=== PATIENT | female | born 1990 | race Hispanic/Latino ===

== ENCOUNTER 2019-07-03 02:40 | Emergency (ER) | payer OTHER, SELFPAY ==
[2019-07-03 02:48] VITALS: BP 144/86; PULSE 80; RESP 18; TEMP 37; O2SAT 98
--- NOTE | 2019-07-03 02:50 | ED.WOUNDLAC ---
HPI - Wound/Laceration General Chief Complaint: Wound/Laceration Stated Complaint: laceration to middle finger left hand Time Seen by Provider: 07/03/19 02:43 Source: patient Mode of arrival: Ambulatory Limitations: no limitations History of Present Illness HPI narrative: 28-year-old female here for evaluation for a cut to her left middle finger. She did cut on a knife just prior to arrival. Her tetanus is updated. She covered with a bandage prior to arrival. Related Data Allergies Allergy/AdvReac Type Severity Reaction Status Date / Time acetaminophen [From Vicodin] Allergy Mild Verified 07/03/19 03:00 hydrocodone [From Vicodin] Allergy Mild Verified 07/03/19 03:00 bee pollen Allergy Verified 07/03/19 03:01 Review of Systems Musculoskeletal Musculoskeletal: Denies myalgias and Denies arthralgias Integumentary/Breasts Comments: Cut to left middle finger Neurologic Neurologic: Denies paresthesias Hematologic/Lymphatic Hematologic/Lymphatic: Denies easy bleeding and Denies easy bruising Patient History Medical History Healthy adult (Acute) Social History Smoking Status: Never smoker Smoking Status: Never smoker alcohol intake frequency: a few times a month Substance Use Type: does not use Exam Initial Vital Signs Initial Vital Signs: Vital Signs Temperature 98.6 F 07/03/19 02:48 Pulse Rate 80 07/03/19 02:48 Respiratory Rate 18 07/03/19 02:48 Blood Pressure 144/86 H 07/03/19 02:48 Pulse Oximetry 98 07/03/19 02:48 Skin Other: 2 cm cut radial aspect of left middle finger distal to the D IP joint. Does not involve the nail bed. Neuro Sensory Exam: no sensory deficits noted Extrem Other: Full range of motion the D IP joint left middle finger Procedures Laceration Repair Laceration 1: Site: hand Side (If applicable): left Size (cm): 2 Description: flap Depth: simple, single layer Local Anesthetic: lidocaine 1% Amount of anesthesia used (mL): 3 Pre-repair: wound explored, irrigated extensively and deep structures intact Skin layer closed with: nylon Size (cm): 4-0 Number of sutures: 5 Technique: simple, interrupted Course Orders Ordered: Discontinued Medications Bacitracin (Bacitracin) 1 applic TOP NOW ONE Stop: 07/03/19 03:12 Lidocaine HCl (Xylocaine 1% (Pf)) 4 ml INJ NOW ONE Stop: 07/03/19 02:55 Last Admin: 07/03/19 03:01 Dose: 4 ml Documented by: VERENICE Vital Signs Vital signs: Vital Signs - 8 hr 07/03/19 02:48 Temperature 98.6 F Pulse Rate 80 Respiratory Rate 18 Blood Pressure 144/86 H Pulse Oximetry 98 MDM - Wound/Laceration MDM Narrative Medical decision making narrative: Laceration closed as described above. This was more of a flap cut rather than a linear cut. Informed the patient that there's a potential that the flap does not survive. He stated this could depend on the blood supply to this area. It does not involve the nail bed. She was informed that there would be a scar. We discussed return precautions and follow-up instructions. She expressed understanding agreement with plan. Discharge Plan Departure Patient Disposition: Home Clinical Impression: Laceration Instructions: DI for Minor Laceration Activity Restrictions/Additional Instructions: Recommend that you keep the bandage on for the next 24 hours. After that you can take it off. You can then wash your hands like normal with soap and water however do not soak your hand in anything for the next 7 days. After you wash your hands you can cover the stitches back up with a Band-Aid. The stitches do need to be removed in 7 days. Return to the emergency department for any new or worsening symptoms
[2019-07-03] MEDS: LIDOCAINE 1% (PF) 4 ML INJ (03:01)
== END 2019-07-03 03:30 | disposition home or self-care (01) ==
PROVIDERS: Emergency Provider Emergency Medicine
DX: S61.213A Laceration without foreign body of left middle finger without damage to nail, initial encounter (principal); W26.0XXA Contact with knife, initial encounter
CPT/HCPCS: 12001; 99281; 99283

== ENCOUNTER 2019-08-03 19:08 | Emergency (ER) | payer OTHER, SELFPAY ==
[2019-08-03 19:15] VITALS: BP 134/79; PULSE 77; RESP 18; O2SAT 98
[2019-08-03 20:29] LABS: Add Manual Diff / Slide Review NO; Basophils Absolute Auto 100 /uL (0-100); Basophils Percent Auto 1.1 % (0-2); Eosinophils Absolute Auto 400 /uL (0-450); Eosinophils Percent Auto 4.1 % (2-4); Hematocrit 38.4 % (36-46); Hemoglobin 13.3 g/dL (12.0-16.0); Lymphocytes Absolute Auto 2900 /uL (1100-4500); Lymphocytes Percent Auto 32.5 % (25-40); Mean Corpuscular HGB Conc 34.6 % (30-36); Mean Corpuscular Hemoglobin 30.1 PG (26-34); Mean Corpuscular Volume 87.1 fL (80-100); Monocytes Absolute Auto 500 /uL (0-900); Monocytes Percent Auto 6.1 % (3-14); Neutrophils Absolute Auto 5000 /uL (1500-7000); Neutrophils Percent Auto 56.2 % (50-75); Platelet Count 274 X10^3/uL (150-400); Red Blood Cell Count 4.41 X10^6/uL (4.0-5.2); Red Cell Distribution Width 12.7 % (11.6-14.8)
[2019-08-03 20:35] LABS: INR 0.9 (0.9-1.3); Prothrombin Time 10.2 SECONDS (10.1-12.7)
[2019-08-03 20:37] LABS: PTT Partial Thromboplastin Tim 28 SECONDS (26.4-36.2)
--- NOTE | 2019-08-03 20:38 | ED.GENADULT ---
HPI - General Adult General Chief complaint: Eye Problems Stated complaint: left eye red and irritated, face also Time Seen by Provider: 08/03/19 20:33 Source: patient Mode of arrival: Ambulatory Limitations: no limitations History of Present Illness HPI narrative: 28-year-old woman with no significant medical history presents with significant redness and swelling with some drainage around the left eye extending down to the angle of the jaw with significant adenopathy. She has no significant past medical history. Her problem began approximately 7 days ago with some mild erythema over the upper eyelid. Was initially seen at a walk-in clinic and given some mupirocin ointment. Was seen at an eye clinic earlier today and was told to use some Vaseline and cover the eye with sunglasses and follow-up with specialist next week. She does note that she has not had any fevers or chills. She otherwise feels well. She complains of some blurring from the left eye and it's unclear if it actual visual acuity changes or blurring from discharge or local edema. Related Data Home Medications Medication Instructions Recorded Confirmed cephalexin 500 mg PO TID 08/03/19 08/03/19 Previous Rx's Medication Instructions Recorded amoxicillin-pot clavulanate 1 tab PO BID #28 tab 08/04/19 [Augmentin] Allergies Allergy/AdvReac Type Severity Reaction Status Date / Time hydrocodone [From Vicodin] Allergy Mild Verified 07/03/19 03:00 bee pollen Allergy Verified 07/03/19 03:01 Review of Systems Review of Systems Narrative: Denies ? fever ? cough ? cold ? chills ? chest pain ? dyspnea ? orthopnea ? wheezing ? abdominal pain ? change to bowel or bladder habits ? nausea vomiting ? skin changes ? rashes Patient History Medical History Healthy adult (Acute) Social History Smoking Status: Never smoker Smoking Status: Never smoker alcohol intake frequency: a few times a month Substance Use Type: does not use Exam Narrative Exam Narrative: General: Healthy appearing, in no acute distress. Able to give a complete and coherent history. Well-nourished well-developed HEENT: Left eye with moderate erythema and honey crusting discharge. Eyelids are swollen however she is able to open the eye enough to see. The erythema extends on to the temporal area as well as down over the maxilla on the left. There is no obvious abscess. Moist mucous membranes, normal sclera with reactive pupils. 20/20 visual acuity on the right, 20/40 on the left Neck: No JVD, supple. Positive left-sided anterior cervical adenopathy Respiratory: Lungs are clear to auscultation, no wheezing no rales no rhonchi. Full and symmetrical air movement Cardiac: Regular rate and rhythm no murmurs no bruits Abdomen: Soft nontender good bowel tones, no flank pain Skin: Warm and dry, no rashes Neurologic: Grossly neurologically intact with no obvious asymmetries or abnormalities Extremities: No trauma, well perfused Psych: Cooperative, appropriate insight and affect Initial Vital Signs Initial Vital Signs: Vital Signs Pulse Rate 77 08/03/19 19:15 Respiratory Rate 18 08/03/19 19:15 Blood Pressure 134/79 08/03/19 19:15 Pulse Oximetry 98 08/03/19 19:15 Course Orders Ordered: ED Orders 08/03/19 20:16 Complete Blood Count AUTO DIFF Stat Comprehensive Metabolic Panel Stat Lactate (Lactic Acid) Stat Lipase Stat Partial Thromboplastin Time Stat Procalcitonin Stat Prothrombin Time INR Stat 08/03/19 20:41 CT orbit BI w con Stat 08/03/19 20:44 Blood Culture Stat Discontinued Medications Ceftriaxone Sodium/Dextrose (Rocephin) 2 gm in 50 mls @ 100 mls/hr IV NOW ONE Stop: 08/03/19 21:29 Last Infusion: 08/03/19 22:12 Dose: 0 mls/hr Documented by: Admin: 08/03/19 21:01 Dose: 100 mls/hr Documented by: PATRICK Vital Signs Vital signs: Vital Signs - 8 hr 08/04/19 00:24 Temperature 98.3 F Pulse Rate 84 Respiratory Rate 18 Blood Pressure 124/80 Pulse Oximetry 98 Medical Decision Making Lab Data Lab results reviewed: Yes I reviewed the patient's lab results. Result diagrams: 08/03/19 20:16 08/03/19 20:16 Labs: Lab Results 08/03/19 08/03/19 08/03/19 Range/Units 20:16 20:16 20:16 WBC 9.0 (4.5-11.0) X10^3/uL RBC 4.41 (4.0-5.2) X10^6/uL Hgb 13.3 (12.0-16.0) g/dL Hct 38.4 (36-46) % MCV 87.1 (80-100) fL MCH 30.1 (26-34) PG MCHC 34.6 (30-36) % RDW 12.7 (11.6-14.8) % Plt Count 274 (150-400) X10^3/uL Neut % (Auto) 56.2 (50-75) % Lymph % (Auto) 32.5 (25-40) % [place] % (Auto) 6.1 (3-14) % Eos % (Auto) 4.1 H (2-4) % Baso % (Auto) 1.1 (0-2) % Neut # (Auto) 5000 (0714-3485) /uL Lymph # (Auto) 2900 (5125-4258) /uL [place] # (Auto) 500 (0-900) /uL Eos # (Auto) 400 (0-450) /uL Baso # (Auto) 100 (0-100) /uL PT 10.2 (10.1-12.7) SECONDS INR 0.9 (0.9-1.3) APTT 28 (26.4-36.2) SECONDS Sodium (137-145) mmol/L Potassium (3.4-5.1) mmol/L Chloride (98-107) mmol/L Carbon Dioxide (22-32) mmol/L BUN (7-17) mg/dL Creatinine (0.52-1.04) mg/dL Estimated GFR (>60) mL/min BUN/Creatinine Ratio (6-22) Glucose (70-100) mg/dL Lactate (0.7-2.1) mmol/L Calcium (8.4-10.2) mg/dL Total Bilirubin (0.2-1.3) mg/dL AST (14-36) IU/L ALT (<35) IU/L Alkaline Phosphatase (38-126) U/L Total Protein (6.3-8.2) g/dL Albumin (3.5-5.0) g/dL Globulin (1.7-4.1) g/dL Albumin/Globulin Ratio (1.0-2.8) Lipase (23-300) U/L Procalcitonin < 0.05 (<0.5) ng/mL 08/03/19 08/03/19 Range/Units 20:16 20:16 WBC (4.5-11.0) X10^3/uL RBC (4.0-5.2) X10^6/uL Hgb (12.0-16.0) g/dL Hct (36-46) % MCV (80-100) fL MCH (26-34) PG MCHC (30-36) % RDW (11.6-14.8) % Plt Count (150-400) X10^3/uL Neut % (Auto) (50-75) % Lymph % (Auto) (25-40) % [place] % (Auto) (3-14) % Eos % (Auto) (2-4) % Baso % (Auto) (0-2) % Neut # (Auto) (9473-2452) /uL Lymph # (Auto) (6350-3074) /uL [place] # (Auto) (0-900) /uL Eos # (Auto) (0-450) /uL Baso # (Auto) (0-100) /uL PT (10.1-12.7) SECONDS INR (0.9-1.3) APTT (26.4-36.2) SECONDS Sodium 137 (137-145) mmol/L Potassium 3.6 (3.4-5.1) mmol/L Chloride 103 (98-107) mmol/L Carbon Dioxide 22 (22-32) mmol/L BUN 14 (7-17) mg/dL Creatinine 0.80 (0.52-1.04) mg/dL Estimated GFR > 60.0 (>60) mL/min BUN/Creatinine Ratio 17.5 (6-22) Glucose 108 H (70-100) mg/dL Lactate 1.6 (0.7-2.1) mmol/L Calcium 9.1 (8.4-10.2) mg/dL Total Bilirubin 0.2 (0.2-1.3) mg/dL AST 36 (14-36) IU/L ALT 32 (<35) IU/L Alkaline Phosphatase 52 (38-126) U/L Total Protein 7.2 (6.3-8.2) g/dL Albumin 4.1 (3.5-5.0) g/dL Globulin 3.1 (1.7-4.1) g/dL Albumin/Globulin Ratio 1.3 (1.0-2.8) Lipase 138 (23-300) U/L Procalcitonin (<0.5) ng/mL Point of Care Testing Test Results Negative Urine Dip Bedside Urine Glucose Negative Bedside Urine Bilirubin - Negative Bedside Urine Ketone - Negative Urine Specific [place] 1.020 Bedside Urine Occult Blood - Negative Bedside Urine pH 5.5 Bedside Urine Protein - Negative Bedside Urine Urobilinogen - Negative Bedside Urine Nitrite - Negative Bedside Urine Leukocytes - Negative Esterase Point of care testing: Point of Care Testing Test Results Negative Urine Dip Bedside Urine Glucose Negative Bedside Urine Bilirubin - Negative Bedside Urine Ketone - Negative Urine Specific [place] 1.020 Bedside Urine Occult Blood - Negative Bedside Urine pH 5.5 Bedside Urine Protein - Negative Bedside Urine Urobilinogen - Negative Bedside Urine Nitrite - Negative Bedside Urine Leukocytes - Negative Esterase Imaging Data orbital CT: Attestation: I personally reviewed and interpreted this imaging study as follows: Radiologist's Impression: IMPRESSION: 1. Left periorbital cellulitis appears to remain superficial. 2. No evidence of drainable periorbital fluid collection. 3. Bilateral sinusitis, mild left frontal and sphenoid sinus disease as well as ethmoid mucosal thickening. Dictated by: Crista Matson M.D. on 08/03/2019 at 22:23 MDM Narrative Medical decision making narrative: Worsening periorbital cellulitis with concurrent impetigo. Incidentally noted bacterial sinusitis on CT scan to be done to rule out periorbital abscess. No evidence of sepsis, abscess or immediate visual threatening injury. She was given a 2 g dose of ceftriaxone IV in the emergency department and discharged home with 14 days of Augmentin. She is safe for home discharge Thank you for coming in today. You have a couple of issues going on today. First you have impetigo, which is a superficial skin infection around her eye. Please continue to use the mupirocin bacterial ointment on the red part around her eye You also have periorbital cellulitis, infection in the skin and soft tissues around her eye. Fortunately this does not extend back behind her eyeball or include the eyeball itself. I'm going to have you stop the Keflex that you currently are taking and start Augmentin 875 mg twice a day for 14 days. I do expect that your redness and swelling will be at least as bad as it current weight is for another 24 hours and then begin to improve. If that is not what is happening you may need IV antibiotics for an extended period of time and do need to return to the emergency department It also appears that you have acute bacterial sinusitis based on your CT scan. The Augmentin will help with that as well. We typically treat sinusitis for a bit longer than cellulitis and that is why have recommended a 14 day course. I hope you heal completely. Discharge Plan Departure Patient Disposition: Home Clinical Impression: Acute bacterial sinusitis, Impetigo Cellulitis, periorbital Qualifiers: Laterality: left Qualified Code(s): L03.213 - Periorbital cellulitis Discharge Date/Time: 08/04/19 00:25 Instructions: DI for Sinusitis, DI for Orbital Cellulitis Activity Restrictions/Additional Instructions: Thank you for coming in today. You have a couple of issues going on today. First you have impetigo, which is a superficial skin infection around her eye. Please continue to use the mupirocin bacterial ointment on the red part around her eye You also have periorbital cellulitis, infection in the skin and soft tissues around her eye. Fortunately this does not extend back behind her eyeball or include the eyeball itself. I'm going to have you stop the Keflex that you currently are taking and start Augmentin 875 mg twice a day for 14 days. I do expect that your redness and swelling will be at least as bad as it current weight is for another 24 hours and then begin to improve. If that is not what is happening you may need IV antibiotics for an extended period of time and do need to return to the emergency department It also appears that you have acute bacterial sinusitis based on your CT scan. The Augmentin will help with that as well. We typically treat sinusitis for a bit longer than cellulitis and that is why have recommended a 14 day course. I hope you heal completely. Prescriptions: New amoxicillin-pot clavulanate [Augmentin] 875-125 mg tablet 1 tab PO BID Qty: 28 RF: 0 No Action cephalexin 500 mg capsule 500 mg PO TID RF: 0
--- NOTE | 2019-08-03 20:41 | DI.CT.S_ITS ---
PROCEDURE: CT ORBIT BI W CON INDICATIONS: Periorbital cellulitis concern for abscess TECHNIQUE: After the administration of intravenous contrast, 2.5 mm axial images acquired through the orbits, with coronal and sagittal reformats. For radiation dose reduction, the following was used: automated exposure control, adjustment of mA and/or kV according to patient size. COMPARISON: None. FINDINGS: Image quality: Excellent. Orbits: Mild left periorbital soft tissue thickening and enhancement. Mild asymmetric soft tissue thickening along the medial aspect of the left orbit there are but without discrete fluid collection. No retrobulbar fat stranding. Globes are symmetric. The optic nerves are normal in size and enhancement. The extra-ocular muscles are normal and symmetrical in appearance. Lacrimal glands are normal. Optic chiasm is normal. Periorbital soft tissues are normal. Intracranial: The pituitary gland is normal, without sellar or suprasellar masses. Visualized cerebral hemispheres, brainstem, and spinal cord appear normal. Bones and sinuses: There is subtotal opacification in both maxillary sinuses with air-fluid levels present centrally. Moderate mucosal thickening throughout the ethmoid air cells. A small amount of fluid layering dependently in the left frontal sinus and both sphenoid sinuses. There is mucosal occlusion of both osteomeatal units. No mastoid effusions. No acute fractures or periostitis. IMPRESSION: 1. Left periorbital cellulitis appears to remain superficial. 2. No evidence of drainable periorbital fluid collection. 3. Bilateral sinusitis, mild left frontal and sphenoid sinus disease as well as ethmoid mucosal thickening. Dictated by: Crista Matson M.D. on 08/03/2019 at 22:23 Approved by: Crista Matson M.D. on 08/03/2019 at 22:34
[2019-08-03 20:42] LABS: Lactate (Lactic Acid) 1.6 mmol/L (0.7-2.1)
[2019-08-03 20:43] LABS: Alanine Aminotransferase 32 IU/L (<35); Albumin 4.1 g/dL (3.5-5.0); Albumin Globulin Ratio 1.3 (1.0-2.8); Alkaline Phosphatase 52 U/L (38-126); Aspartate Aminotransferase 36 IU/L (14-36); BUN Creatinine Ratio 17.5 (6-22); Bilirubin Total 0.2 mg/dL (0.2-1.3); Blood Urea Nitrogen 14 mg/dL (7-17); Calcium 9.1 mg/dL (8.4-10.2); Carbon Dioxide 22 mmol/L (22-32); Chloride 103 mmol/L (98-107); Estimated Glomerular Filt Rate > 60.0 mL/min (>60); Globulin 3.1 g/dL (1.7-4.1); Glucose 108 mg/dL (70-100); HEMOLYSIS < 15 (0-50); Lipase 138 U/L (23-300); Potassium 3.6 mmol/L (3.4-5.1); Sodium 137 mmol/L (137-145); Total Protein 7.2 g/dL (6.3-8.2)
[2019-08-03 20:57] LABS: Procalcitonin < 0.05 ng/mL (<0.5)
[2019-08-03] MEDS: CEFTRIAXONE 2 GM/50 ML FROZ.PIGGY IV (21:01)
[2019-08-04 00:24] VITALS: BP 124/80; PULSE 84; RESP 18; TEMP 36.8; O2SAT 98
== END 2019-08-04 00:25 | disposition home or self-care (01) ==
PROVIDERS: Nurse Practitioner Family; Emergency Provider Emergency Medicine
DX: J01.90 Acute sinusitis, unspecified (principal); L01.00 Impetigo, unspecified; L03.213 Periorbital cellulitis
CPT/HCPCS: 36415; 70481; 80053; 81003; 81025; 83605; 83690; 84145; 85025; 85610; 85730; 87040; 96365; 99284; J0696; Q9967